=== PATIENT | female | born 1950 | race Caucasian/White ===

== ENCOUNTER 2023-04-07 14:49 | Outpatient (OUT) | payer MEDICARE, SELFPAY ==
--- NOTE | 2023-04-07 14:57 | XR_ITS ---
The [address] [address] Patient Name: SONIA CARRASCO MRN: [id number] date: 1950 Sex: F Assigned Patient Location: [facility] Current Patient Location: [facility] Accession/Order Number: [id number] Exam Date: 04/07/2023 14:57 Report Date: 04/08/2023 18:53 At the request of: PEYTON MARX Procedure: XR foot FAUSTINO min 3V EXAMINATION: XR foot FAUSTINO min 3V HISTORY: BILATERAL FOOT PAIN right dorsal midfoot pain; left foot weakness and ankle pain and swelling COMPARISON: No relevant comparison available. FINDINGS: RIGHT FINDINGS: BONES: No significant arthropathy or acute abnormality. Single small screw within second metatarsal head from prior repair. SOFT TISSUES: No visible soft tissue swelling. OTHER: Negative. LEFT FINDINGS: BONES: No significant arthropathy or acute abnormality. SOFT TISSUES: No visible soft tissue swelling. OTHER: Negative. XR/XR foot FAUSTINO min 3V IMPRESSION: RIGHT CONCLUSION: No acute bone abnormality or significant degenerative joint disease. LEFT CONCLUSION: No acute bone abnormality or significant degenerative joint disease. Electronically authenticated by: DAYANA KAY Date: 04/08/2023 18:53
--- NOTE | 2023-04-07 15:07 | XR_ITS ---
The [address] [address] Patient Name: SONIA CARRASCO MRN: [id number] date: 1950 Sex: F Assigned Patient Location: [facility] Current Patient Location: Accession/Order Number: [id number] Exam Date: 04/07/2023 15:07 Report Date: 04/08/2023 13:55 At the request of: PEYTON MARX Procedure: XR ankle LT min 3V EXAM: XR ankle LT min 3V HISTORY: LEFT ANKLE PAIN COMPARISON: None. TECHNIQUE: 3 views of the left ankle were obtained. FINDINGS: There is no evidence of an acute fracture or dislocation. The mortise is intact. No osteochondral injury is identified. The subtalar joints are intact. An osteophyte arises from the insertion site of the Achilles tendon. Significant soft tissue swelling is seen about the ankle, more prominent laterally. XR/XR ankle LT min 3V IMPRESSION: No acute fracture or dislocation. An osteophyte arises from the posterior calcaneus. Diffuse soft tissue swelling is present. Electronically authenticated by: ANISH TAYLOR Date: 04/08/2023 13:55
== END 2023-04-07 14:50 | disposition home or self-care (01) ==
LOC: RAD 14:49
PROVIDERS: Visit Provider Physician Assistant
DX: M79.671 Pain in right foot (principal); M79.672 Pain in left foot; M25.572 Pain in left ankle and joints of left foot
CPT/HCPCS: 73610; 73630

== ENCOUNTER 2023-06-13 02:17 | Outpatient (REF) | payer MEDICARE, SELFPAY ==
[2023-06-13 07:50] LABS: INR 3.88; Prothrombin Time 38.1 sec (9.0-11.6)
== END 2023-06-13 02:18 | disposition home or self-care (01) ==
LOC: LAB 02:17
PROVIDERS: Visit Provider Family Medicine
DX: I48.19 Other persistent atrial fibrillation (principal)
CPT/HCPCS: 36415; 85610

== ENCOUNTER 2023-06-15 10:32 | Outpatient (REF) | payer MEDICARE, SELFPAY ==
[2023-06-15 11:51] LABS: Bilirubin Urine NEGATIVE (NEGATIVE); Blood Urine MODERATE (NEGATIVE); Clarity Urine CLOUDY (CLEAR); Color Urine LT. YELLOW (YELLOW); Glucose Urine UA NEGATIVE (NEGATIVE); Ketones Urine NEGATIVE (NEGATIVE); Leukocyte Esterase Urine MODERATE (NEGATIVE); Nitrite Urine NEGATIVE (NEGATIVE); Protein Urine TRACE mg/dL (NEG/TRACE); Specific Gravity Urine >=1.030 (1.005-1.025); Urobilinogen Urine 0.2 EU/dL (0.2-1.0); pH Urine 5.5 (5.0-9.0)
[2023-06-15 12:23] LABS: Urine Microscopic Indicated YES
[2023-06-15 12:25] LABS: Bacteria Urine MODERATE #/HPF (NONE SEEN); Calcium Oxalate Crystals Urine RARE; Cast Seen? NONE SEEN #/LPF (NONE SEEN); Crystals Seen? Seen #/HPF (None Seen); Mucus Urine NONE SEEN (NONE SEEN); Squamous Epithelial Cell Urine FEW #/LPF (NONE/RARE); Urine Culture Indicated YES; WBC Urine >100 #/HPF (NONE SEEN)
== END 2023-06-15 10:33 | disposition home or self-care (01) ==
LOC: LAB 10:32
PROVIDERS: Visit Provider Family Medicine
DX: R39.15 Urgency of urination (principal)
CPT/HCPCS: 81001; 87086; 87150; 87186

== ENCOUNTER 2023-06-17 01:04 | Outpatient (REF) | payer MEDICARE, SELFPAY ==
[2023-06-17 09:41] LABS: INR 1.71; Prothrombin Time 17.6 sec (9.0-11.6)
== END 2023-06-17 01:05 | disposition home or self-care (01) ==
LOC: LAB 01:04
PROVIDERS: Visit Provider Family Medicine
DX: I48.91 Unspecified atrial fibrillation (principal)
CPT/HCPCS: 36415; 85610

== ENCOUNTER 2023-06-20 01:10 | Outpatient (REF) | payer MEDICARE, SELFPAY ==
[2023-06-20 07:52] LABS: INR 1.74; Prothrombin Time 17.9 sec (9.0-11.6)
== END 2023-06-20 01:11 | disposition home or self-care (01) ==
LOC: LAB 01:10
PROVIDERS: Visit Provider Family Medicine
DX: I48.91 Unspecified atrial fibrillation (principal)
CPT/HCPCS: 36415; 85610

== ENCOUNTER 2023-06-24 06:09 | Outpatient (REF) | payer MEDICARE, SELFPAY ==
[2023-06-24 10:45] LABS: INR 1.95; Prothrombin Time 19.9 sec (9.0-11.6)
== END 2023-06-24 06:10 | disposition home or self-care (01) ==
LOC: LAB 06:09
PROVIDERS: Visit Provider Family Medicine
DX: I48.91 Unspecified atrial fibrillation (principal)
CPT/HCPCS: 36415; 85610

== ENCOUNTER 2023-06-27 04:16 | Outpatient (REF) | payer MEDICARE, SELFPAY ==
[2023-06-27 09:07] LABS: Basophils Percent Auto 0.6 % (0.2-2.0); Eosinophils Absolute Auto 0.4 10^3/uL (0.0-0.7); Eosinophils Percent Auto 5.8 % (0.9-7.0); Hematocrit 37.4 % (36.0-48.0); Hemoglobin 11.4 g/dL (12.0-16.0); Immature Granulocytes Abs Auto 0.03 10^3/uL (0.00-0.03); Immature Granulocytes Pct Auto 0.4 % (0.0-0.5); Lymphocytes Absolute Auto 1.8 10^3/uL (1.2-3.8); Lymphocytes Percent Auto 26.8 % (20.5-60.0); Mean Corpuscular HGB Conc 30.5 g/dL (29.9-35.2); Mean Corpuscular Hemoglobin 33.7 pg (26.7-34.0); Mean Platelet Volume 10.3 fL (9.5-13.5); Monocytes Absolute Auto 0.8 10^3/uL (0.3-0.8); Monocytes Percent Auto 12.2 % (1.7-12.0); Neutrophils Absolute Auto 3.6 10^3/uL (1.4-6.5); Neutrophils Percent Auto 54.2 % (43.0-75.0); Platelet Count 281 10^3/uL (150-450); Red Blood Count 3.38 10^6/uL (4.20-5.40); Red Cell Distribution Width 19.5 % (11.0-15.0); White Blood Count 6.7 10^3/uL (4.0-11.0)
[2023-06-27 09:15] LABS: Mean Corpuscular Volume 110.7 fL (81.0-99.0)
[2023-06-27 09:22] LABS: INR 2.66; Prothrombin Time 26.7 sec (9.0-11.6)
[2023-06-27 09:54] LABS: Anion Gap 8.5; BUN Creatinine Ratio 17.6; Chloride 104 mmol/L (98-107); Estimated GFR (African America >60 (>=60); Estimated GFR (Non-African Ame >60 (>=60); Glucose 82 mg/dL (74-106); Potassium 4.5 mmol/L (3.5-5.1); Sodium 143 mmol/L (136-145)
== END 2023-06-27 04:17 | disposition home or self-care (01) ==
LOC: LAB 04:16
DX: D64.9 Anemia, unspecified (principal); I10 Essential (primary) hypertension
CPT/HCPCS: 36415; 80048; 85025; 85610

== ENCOUNTER 2023-07-01 00:44 | Outpatient (REF) | payer MEDICARE, SELFPAY ==
[2023-07-01 10:20] LABS: INR 3.76
== END 2023-07-01 00:45 | disposition home or self-care (01) ==
LOC: LAB 00:44
PROVIDERS: Visit Provider Family Medicine
DX: I25.10 Atherosclerotic heart disease of native coronary artery without angina pectoris (principal)
CPT/HCPCS: 36415; 85610

== ENCOUNTER 2023-07-04 03:19 | Outpatient (REF) | payer MEDICARE, SELFPAY ==
[2023-07-04 10:13] LABS: INR 3.06; Prothrombin Time 30.4 sec (9.0-11.6)
== END 2023-07-04 03:20 | disposition home or self-care (01) ==
LOC: LAB 03:19
PROVIDERS: Visit Provider Family Medicine
DX: I25.10 Atherosclerotic heart disease of native coronary artery without angina pectoris (principal)
CPT/HCPCS: 36415; 85610

== ENCOUNTER 2023-07-06 04:29 | Outpatient (REF) | payer MEDICARE, SELFPAY ==
[2023-07-06 09:58] LABS: Prothrombin Time 46.3 sec (9.0-11.6)
[2023-07-06 09:59] LABS: INR 4.77
== END 2023-07-06 04:30 | disposition home or self-care (01) ==
LOC: LAB 04:29
PROVIDERS: Visit Provider Family Medicine
DX: Z79.01 Long term (current) use of anticoagulants (principal)
CPT/HCPCS: 36415; 85610

== ENCOUNTER 2024-11-30 09:08 | Outpatient (REF) | payer MEDICARE, SELFPAY ==
[2024-11-30 09:24] LABS: Bilirubin Urine NEGATIVE (NEGATIVE); Blood Urine NEGATIVE (NEGATIVE); Clarity Urine CLEAR (CLEAR); Color Urine YELLOW (YELLOW); Glucose Urine UA NEGATIVE (NEGATIVE); Ketones Urine NEGATIVE (NEGATIVE); Leukocyte Esterase Urine NEGATIVE (NEGATIVE); Nitrite Urine NEGATIVE (NEGATIVE); Protein Urine 30 mg/dL (NEG/TRACE)
== END 2024-11-30 09:09 | disposition home or self-care (01) ==
LOC: LAB 09:08
PROVIDERS: Visit Provider Family Medicine
DX: R39.9 Unspecified symptoms and signs involving the genitourinary system (principal); R82.998 Other abnormal findings in urine
CPT/HCPCS: 81003